=== PATIENT | male | born 1970 | race Hispanic/Latino ===

== ENCOUNTER 2017-07-13 10:33 | Inpatient (IN) | payer OTHER ==
[~2017-07-13] VITALS: Ht 162.6 cm; Wt 93.9 kg
[2017-07-13 12:11] VITALS: BP 140/83
[2017-07-13] MEDS ORDERED: BIVALIRUDIN 250 MG/VIAL IV ONE (12:18)
[2017-07-13] MEDS ORDERED: HEPARIN SODIUM 1000UNIT/ML 10ML VIAL ONE (12:18)
[2017-07-13] MEDS ORDERED: NITROGLYCERIN 5 MG/ML 10 ML VIAL IV ONE (12:18)
[2017-07-13] MEDS ORDERED: IOPAMIDOL-370 100 ML VIAL IV ONE (12:18)
[2017-07-13] MEDS ORDERED: LIDOCAINE HCL 2% 20ML ONE (12:18)
[2017-07-13] MEDS ORDERED: IOPAMIDOL-370 75 ML VIAL IV ONE (12:18)
[2017-07-13] MEDS ORDERED: MIDAZOLAM HCL 1 MG/ML 2ML VIAL ONE (13:12)
[2017-07-13] MEDS ORDERED: FENTANYL CITRATE PF 50 MCG/1 ML 2ML VIAL ONE (13:12)
[2017-07-13] MEDS ORDERED: SODIUM CHLORIDE 0.9% 1000ML 1,000 ML IV SCH (13:50)
[2017-07-13] MEDS ORDERED: NITROGLYCERIN 0.4 MG SL TAB SL PRN (14:00)
[2017-07-13] MEDS ORDERED: DEXTROSE 50%-WATER 50 ML DISP.SYRIN IV PRN (14:00)
[2017-07-13] MEDS ORDERED: GLUCAGON 1MG KIT 1 MG ML IM PRN (14:00)
[2017-07-13] MEDS ORDERED: CEFUROXIME 1.5GM+NS 100ML 100 ML IV SCH (14:45)
[2017-07-13] MEDS: NITROGLYCERIN 1GM/1 INCH PACKET TD SCH ×2 (14:49→20:26)
[2017-07-13 15:11] LABS: HEMOGLOBIN A1C 5.8 % (4.0-6.0)
[2017-07-13] MEDS ORDERED: WATER FOR INJECTION,STERILE 20 ML VIAL IJ SCH (15:30)
[2017-07-13 15:50] VITALS: BP 142/78
[2017-07-13 16:05] VITALS: BP 152/78
[2017-07-13 16:20] VITALS: BP 157/85
[2017-07-13] MEDS ORDERED: ISOSORBIDE MONO 30MG TAB SR PO SCH (19:15)
[2017-07-13 19:21] VITALS: BP 153/82
[2017-07-13] MEDS: METOPROLOL TARTRATE 25 MG TAB PO SCH (20:26)
[2017-07-13 23:07] VITALS: BP 138/61
[2017-07-14] VITALS (16 sets, daily range): BP systolic 107–157; BP diastolic 65–86
[2017-07-14] MEDS: NITROGLYCERIN 1GM/1 INCH PACKET TD SCH ×2 (01:41→11:03)
[2017-07-14 04:26] LABS: BASOPHILS % (AUTO) 0.3 % (0.0-5.0); EOSINOPHILS % (AUTO) 0.5 % (0.0-8.0); HEMATOCRIT 38.8 % (42-54); LYMPHOCYTES % (AUTO) 24.3 % (21.0-51.0); MEAN CORPUSCULAR HEMOGLOBIN 29.2 pg (27.0-33.0); MEAN CORPUSCULAR HGB CONC 34.2 g/dL (32.0-36.0); MEAN CORPUSCULAR VOLUME 85.4 fL (79-99); MONOCYTES % (AUTO) 9.1 % (3.0-13.0); NEUTROPHILS % (AUTO) 65.8 % (40.0-77.0); NUCLEATED RED BLOOD CELLS 0.1 % (0.0-0.19); PLATELET COUNT (AUTO) 276 K/uL (130-400); RED BLOOD CELL COUNT(AUTO) 4.54 MIL/uL (4.50-6.20); RED CELL DISTRIBUTION WIDTH 13.1 % (11.0-15.5); WHITE BLOOD COUNT (AUTO) 8.9 K/uL (4.8-10.8)
[2017-07-14 04:34] LABS: INR 0.96 (0.85-1.15); PARTIAL THROMBOPLASTIN TIME 29.4 SEC (26.3-35.5); PROTHROMBIN TIME 10.1 SEC (9.6-11.6)
[2017-07-14] MEDS ORDERED: ONDANSETRON HCL 4 MG/2 ML VIAL ONE (04:44)
[2017-07-14] MEDS ORDERED: ONDANSETRON HCL 4 MG/2 ML VIAL IVP PRN (04:45)
[2017-07-14] MEDS ORDERED: MORPHINE SULFATE 4 MG/1ML SYG IV PRN (04:45)
[2017-07-14 04:47] LABS: CREATININE 0.8 mg/dL (0.5-1.5); POTASSIUM 3.7 mmol/L (3.5-5.1)
[2017-07-14] MEDS: ASPIRIN 81MG TAB.CHEW PO SCH (09:00)
[2017-07-14] MEDS: METOPROLOL TARTRATE 25 MG TAB PO SCH (09:23)
[2017-07-14] MEDS: CEFUROXIME SODIUM 1.5 GM VIAL IVP SCH ×2 (10:00→11:30)
[2017-07-14] MEDS ORDERED: SODIUM CHLORIDE 0.9% 1000ML 1,000 ML IV ONE (10:16)
[2017-07-14] MEDS ORDERED: PROPOFOL 10 MG/ML 20ML VIAL IV ONE (10:40)
[2017-07-14] MEDS ORDERED: PROTAMINE SULFATE 10 MG/ML 25ML VIAL IV ONE (10:40)
[2017-07-14] MEDS ORDERED: LIDOCAINE PF 2% 5ML ABBOJECT ONE (10:40)
[2017-07-14] MEDS ORDERED: ROCURONIUM BROMIDE 10MG/1ML 5ML VL ONE (10:40)
[2017-07-14] MEDS ORDERED: GLYCOPYRROLATE 0.2 MG/ML 5 ML VIAL ONE (10:40)
[2017-07-14] MEDS ORDERED: NEOSTIGMINE METHYLSULFATE 1MG/ML IV ONE (10:40)
[2017-07-14] MEDS ORDERED: AMINOCAPROIC ACID 250 MG/ML 20 ML VIAL IV ONE (10:40)
[2017-07-14] MEDS ORDERED: EPINEPHRINE 1 MG/ML AMPULE ONE (10:40)
[2017-07-14] MEDS ORDERED: NOREPINEPHRINE BITARTRATE 1 MG/1 ML ML IV ONE (10:40)
[2017-07-14] MEDS ORDERED: HEPARIN SODIUM 1000UNIT/ML 10ML VIAL ONE ×3 (10:40→12:41)
[2017-07-14] MEDS ORDERED: MILRINONE-D5W 20 MG/100 ML 100 ML IV ONE (10:40)
[2017-07-14] MEDS ORDERED: AMIODARONE HCL 900MG/18ML IV ONE (10:40)
[2017-07-14] MEDS ORDERED: ESMOLOL HCL 10 MG/ML 10 ML VIAL ONE (10:40)
[2017-07-14] MEDS ORDERED: FENTANYL CITRATE PF 50 MCG/1 ML 20ML VIAL IJ ONE (10:41)
[2017-07-14] MEDS ORDERED: MIDAZOLAM HCL 1 MG/ML 5ML VIAL ONE (10:41)
[2017-07-14] MEDS ORDERED: NITROGLYCERIN 50 MG/D5% WATER 1 BOT ONE (11:07)
[2017-07-14] MEDS ORDERED: PAPAVERINE HCL 30 MG/ML 2ML VIAL ONE (11:50)
[2017-07-14] MEDS ORDERED: BACITRACIN 50,000 UNIT VIAL ONE (11:50)
[2017-07-14] MEDS ORDERED: OCTYL 2-CYANOACRYLATE 1 EACH TP ONE ×2 (11:50→16:18)
[2017-07-14 12:23] LABS: ABG HCO3 24.5 mmol/L (21.0-28.0); ABG OXYGEN SATURATION 99.1 % (95.0-99.0); ABG PCO2 44 mmHg (35-48)
[2017-07-14] MEDS ORDERED: THROMBIN-JMI 5000 UNIT/VIAL TP ONE (12:41)
[2017-07-14] MEDS ORDERED: SODIUM BICARB 8.4% 50ML SYRINGE ONE ×3 (13:08→16:26)
[2017-07-14] MEDS ORDERED: CALCIUM CHLORIDE 100 MG/ML 10 ML SYG IVP ONE (13:08)
[2017-07-14 14:06] LABS: ABG BASE EXCESS -9.6 mmol/L (-2.0-3.0); ABG HCO3 15.7 mmol/L (21.0-28.0); ABG OXYGEN SATURATION 99.1 % (95.0-99.0); ABG PCO2 33 mmHg (35-48)
[2017-07-14] MEDS ORDERED: FENTANYL CITRATE PF 50 MCG/1 ML 5ML AMP IV ONE (14:18)
[2017-07-14] MEDS ORDERED: CEFUROXIME SODIUM 1.5 GM VIAL ONE (14:33)
[2017-07-14 16:15] LABS: ABG BASE EXCESS -1.6 mmol/L (-2.0-3.0); ABG HCO3 21.8 mmol/L (21.0-28.0); ABG OXYGEN SATURATION 98.5 % (95.0-99.0); ABG PCO2 33 mmHg (35-48)
[2017-07-14] MEDS ORDERED: METOPROLOL TARTRATE 1 MG/ML 5ML VIAL IV ONE ×2 (16:15→16:26)
[2017-07-14] MEDS ORDERED: SODIUM CHLORIDE 0.9% 500ML 500 ML IV SCH (17:17)
[2017-07-14] MEDS ORDERED: GLUCAGON 1MG KIT 1 MG ML IM PRN (17:30)
[2017-07-14] MEDS ORDERED: CALCIUM GLUCONATE 1 GM in SODIUM CHLORIDE 0.9% 50 ML IV PRN (17:30)
[2017-07-14] MEDS ORDERED: PROPOFOL 1000 MG/100 ML 100 ML IV PRN (17:30)
[2017-07-14] MEDS ORDERED: SODIUM CHLORIDE 0.9% 250 ML IV PRN (17:30)
[2017-07-14] MEDS ORDERED: POTASSIUM PHOS 15 mMOL+NS250ML 250 ML IV PRN (17:30)
[2017-07-14] MEDS ORDERED: SODIUM CHLORIDE 0.9% 1000ML 1,000 ML IV SCH (17:30)
[2017-07-14] MEDS ORDERED: DEXTROSE 50%-WATER 50 ML DISP.SYRIN IV PRN (17:30)
[2017-07-14] MEDS ORDERED: HYDROCODONE/ACETAMINOPHEN 5/325 MG TAB PO PRN (17:30)
[2017-07-14] MEDS ORDERED: ONDANSETRON HCL 4 MG/2 ML VIAL IV PRN (17:30)
[2017-07-14] MEDS ORDERED: MORPHINE SULFATE 2 MG/ML 1ML SYG IV PRN (17:30)
[2017-07-14] MEDS ORDERED: INSULIN REGULAR, HUMAN 3ML 100 UNIT in SODIUM CHLORIDE 0.9% 99 ML IV SCH ×2 (17:30)
[2017-07-14] MEDS ORDERED: SODIUM BICARB 8.4% 50ML SYRINGE IV PRN (17:30)
[2017-07-14] MEDS ORDERED: EPINEPHRINE 2 MG in SODIUM CHLORIDE 0.9% 250 ML IV PRN (17:30)
[2017-07-14] MEDS ORDERED: NOREPINEPHRINE 4MG/NS 250ML 250 ML IV PRN (17:30)
[2017-07-14] MEDS ORDERED: ALBUMIN (HUMAN) 5% 250 ML IV PRN (17:30)
[2017-07-14] MEDS ORDERED: SODIUM CHLORIDE 0.9% 10 ML VIAL IVP PRN (17:30)
[2017-07-14] MEDS ORDERED: ACETAMINOPHEN 650 MG SUPPOSITORY RC PRN (17:30)
[2017-07-14] MEDS ORDERED: NITROGLYCERIN 50 MG/D5% WATER 250 BOT IV SCH (17:30)
[2017-07-14 17:38] LABS: HEMATOCRIT 33.8 % (42-54); MEAN CORPUSCULAR HEMOGLOBIN 30.1 pg (27.0-33.0); MEAN CORPUSCULAR HGB CONC 35.3 g/dL (32.0-36.0); MEAN CORPUSCULAR VOLUME 85.1 fL (79-99); PLATELET COUNT (AUTO) 280 K/uL (130-400); RED BLOOD CELL COUNT(AUTO) 3.97 MIL/uL (4.50-6.20); RED CELL DISTRIBUTION WIDTH 12.9 % (11.0-15.5); WHITE BLOOD COUNT (AUTO) 24.6 K/uL (4.8-10.8)
[2017-07-14] MEDS: MORPHINE SULFATE 4 MG/1ML SYG IV PRN ×2 (17:39→19:32)
[2017-07-14 17:46] LABS: ABG BASE EXCESS -1.7 mmol/L (-2.0-3.0); ABG HCO3 23.2 mmol/L (21.0-28.0); ABG PCO2 40 mmHg (35-48)
[2017-07-14 17:49] LABS: CREATININE 1.1 mg/dL (0.5-1.5); MAGNESIUM 1.4 mg/dL (1.80-2.40); PHOSPHORUS 4.6 mg/dL (2.5-4.9); POTASSIUM 4.2 mmol/L (3.5-5.1)
[2017-07-14] MEDS: MAGNESIUM 2GM PREMIX 50ML 50 ML IV PRN (18:35)
[2017-07-14] MEDS ORDERED: SODIUM BICARB 50MEQ 50ML VIAL ONE (19:46)
[2017-07-14 21:29] LABS: MAGNESIUM 2.2 mg/dL (1.80-2.40); POTASSIUM 4.1 mmol/L (3.5-5.1)
[2017-07-14] MEDS: POTASSIUM CHLORIDE 20MEQ/100ML 100 ML IV PRN (22:36)
[2017-07-14 23:05] LABS: ABG BASE EXCESS -1.6 mmol/L (-2.0-3.0); ABG HCO3 23.2 mmol/L (21.0-28.0); ABG OXYGEN SATURATION 97.9 % (95.0-99.0); ABG PCO2 40 mmHg (35-48)
[2017-07-15] VITALS (25 sets, daily range): BP systolic 104–158; BP diastolic 56–96
[2017-07-15 00:47] LABS: ABG BASE EXCESS 1.5 mmol/L (-2.0-3.0); ABG HCO3 26.9 mmol/L (21.0-28.0); ABG OXYGEN SATURATION 97.7 % (95.0-99.0); ABG PCO2 46 mmHg (35-48)
[2017-07-15] MEDS: HYDROCODONE/ACETAMINOPHEN 5/325 MG TAB PO PRN ×4 (01:00→13:14)
[2017-07-15] MEDS: CEFUROXIME SODIUM 1.5 GM VIAL IVP SCH ×2 (01:01→13:04)
[2017-07-15] MEDS: WATER FOR INJECTION,STERILE 20 ML VIAL IJ SCH ×2 (01:01→13:04)
[2017-07-15] MEDS: POTASSIUM CHLORIDE 20MEQ/100ML 100 ML IV PRN (01:01)
[2017-07-15] MEDS ORDERED: CEFUROXIME 1.5GM+NS 100ML 100 ML IV SCH (01:30)
[2017-07-15 04:19] LABS: BASOPHILS % (AUTO) 0.1 % (0.0-5.0); HEMATOCRIT 33.9 % (42-54); MEAN CORPUSCULAR HEMOGLOBIN 29.6 pg (27.0-33.0); MEAN CORPUSCULAR HGB CONC 34.7 g/dL (32.0-36.0); MEAN CORPUSCULAR VOLUME 85.4 fL (79-99); MONOCYTES % (AUTO) 9.5 % (3.0-13.0); NEUTROPHILS % (AUTO) 85.4 % (40.0-77.0); PLATELET COUNT (AUTO) 254 K/uL (130-400); RED BLOOD CELL COUNT(AUTO) 3.98 MIL/uL (4.50-6.20); RED CELL DISTRIBUTION WIDTH 13.1 % (11.0-15.5); WHITE BLOOD COUNT (AUTO) 16.7 K/uL (4.8-10.8)
[2017-07-15 04:37] LABS: CREATININE 0.9 mg/dL (0.5-1.5); PHOSPHORUS 4.2 mg/dL (2.5-4.9); POTASSIUM 4.2 mmol/L (3.5-5.1)
[2017-07-15] MEDS: ASPIRIN 81MG TAB.CHEW PO SCH (09:13)
[2017-07-15] MEDS: PANTOPRAZOLE SODIUM 40 MG TABLET.DR PO SCH (09:13)
[2017-07-15] MEDS ORDERED: METOPROLOL TARTRATE 25 MG TAB PO SCH ×2 (14:30→15:45)
[2017-07-15] MEDS: POTASSIUM CHLORIDE 20 MEQ ERTAB PO SCH (16:17)
[2017-07-15] MEDS: FUROSEMIDE 20 MG TABLET PO SCH (16:18)
[2017-07-15] MEDS: METOPROLOL TARTRATE 50 MG TAB PO SCH (20:47)
[2017-07-15] MEDS: ATORVASTATIN CALCIUM 20 MG TABLET PO SCH (20:47)
[2017-07-15] MEDS ORDERED: CETIRIZINE HCL 5 MG TABLET PO ONE (20:55)
[2017-07-15] MEDS ORDERED: CETIRIZINE HCL 5 MG TABLET PO SCH (21:00)
[2017-07-15] MEDS: GUAIFENESIN 600 MG TABLET.ER PO SCH (22:45)
[2017-07-16] VITALS (10 sets, daily range): BP systolic 115–138; BP diastolic 57–84
[2017-07-16] MEDS: CEFUROXIME SODIUM 1.5 GM VIAL IVP SCH (01:21)
[2017-07-16] MEDS: WATER FOR INJECTION,STERILE 20 ML VIAL IJ SCH (01:21)
[2017-07-16] MEDS: TRAMADOL HCL 50 MG TABLET PO PRN ×5 (01:21→23:52)
[2017-07-16 03:28] LABS: BASOPHILS % (AUTO) 0.2 % (0.0-5.0); HEMATOCRIT 30.9 % (42-54); LYMPHOCYTES % (AUTO) 9.4 % (21.0-51.0); MEAN CORPUSCULAR HEMOGLOBIN 29.1 pg (27.0-33.0); MEAN CORPUSCULAR HGB CONC 33.6 g/dL (32.0-36.0); MEAN CORPUSCULAR VOLUME 86.6 fL (79-99); MONOCYTES % (AUTO) 8.7 % (3.0-13.0); NEUTROPHILS % (AUTO) 81.7 % (40.0-77.0); PLATELET COUNT (AUTO) 226 K/uL (130-400); RED BLOOD CELL COUNT(AUTO) 3.57 MIL/uL (4.50-6.20); RED CELL DISTRIBUTION WIDTH 13.4 % (11.0-15.5); WHITE BLOOD COUNT (AUTO) 14.9 K/uL (4.8-10.8)
[2017-07-16 03:43] LABS: CREATININE 0.8 mg/dL (0.5-1.5); MAGNESIUM 1.8 mg/dL (1.80-2.40); POTASSIUM 3.6 mmol/L (3.5-5.1)
[2017-07-16] MEDS: MAGNESIUM 2GM PREMIX 50ML 50 ML IV PRN (05:14)
[2017-07-16] MEDS: POTASSIUM CHLORIDE 20MEQ/100ML 100 ML IV PRN (05:15)
[2017-07-16] MEDS: METOPROLOL TARTRATE 50 MG TAB PO SCH ×2 (08:27→19:52)
[2017-07-16] MEDS: GUAIFENESIN 600 MG TABLET.ER PO SCH ×3 (08:27→19:52)
[2017-07-16] MEDS: CETIRIZINE HCL 5 MG TABLET PO SCH (08:27)
[2017-07-16] MEDS: PANTOPRAZOLE SODIUM 40 MG TABLET.DR PO SCH (08:27)
[2017-07-16] MEDS: FUROSEMIDE 20 MG TABLET PO SCH ×2 (08:28→15:58)
[2017-07-16] MEDS: POTASSIUM CHLORIDE 20 MEQ ERTAB PO SCH ×2 (08:28→16:00)
[2017-07-16] MEDS: ASPIRIN 81MG TAB.CHEW PO SCH (08:28)
[2017-07-16] MEDS: ACETAMINOPHEN 325 MG TAB PO PRN (16:23)
[2017-07-16] MEDS: ATORVASTATIN CALCIUM 20 MG TABLET PO SCH (19:52)
[2017-07-16] MEDS ORDERED: POTASSIUM CHLORIDE 20 MEQ ERTAB PO SCH (21:00)
[2017-07-17] VITALS (7 sets, daily range): BP systolic 116–135; BP diastolic 58–93
[2017-07-17] MEDS: TRAMADOL HCL 50 MG TABLET PO PRN ×2 (03:59→08:40)
[2017-07-17 04:28] LABS: HEMATOCRIT 27.2 % (42-54); MEAN CORPUSCULAR HEMOGLOBIN 28.7 pg (27.0-33.0); MEAN CORPUSCULAR HGB CONC 33.8 g/dL (32.0-36.0); MEAN CORPUSCULAR VOLUME 84.7 fL (79-99); PLATELET COUNT (AUTO) 248 K/uL (130-400); RED BLOOD CELL COUNT(AUTO) 3.21 MIL/uL (4.50-6.20); RED CELL DISTRIBUTION WIDTH 13.4 % (11.0-15.5); WHITE BLOOD COUNT (AUTO) 13.2 K/uL (4.8-10.8)
[2017-07-17 04:39] LABS: CREATININE 0.8 mg/dL (0.5-1.5); POTASSIUM 4.6 mmol/L (3.5-5.1)
[2017-07-17] MEDS: FUROSEMIDE 20 MG TABLET PO SCH ×2 (08:39→16:17)
[2017-07-17] MEDS: METOPROLOL TARTRATE 50 MG TAB PO SCH ×2 (08:39→20:03)
[2017-07-17] MEDS: ASPIRIN 81MG TAB.CHEW PO SCH (08:39)
[2017-07-17] MEDS: GUAIFENESIN 600 MG TABLET.ER PO SCH ×2 (08:39→20:03)
[2017-07-17] MEDS: ENOXAPARIN SODIUM 40 MG/0.4 ML SYRINGE SQ SCH (08:40)
[2017-07-17] MEDS: CETIRIZINE HCL 5 MG TABLET PO SCH (08:40)
[2017-07-17] MEDS: PANTOPRAZOLE SODIUM 40 MG TABLET.DR PO SCH (08:40)
[2017-07-17] MEDS: POTASSIUM CHLORIDE 20 MEQ ERTAB PO SCH ×2 (08:41→16:18)
[2017-07-17] MEDS ORDERED: POLYETHYLENE GLYCOL 3350 17 GM POWD.PACK PO PRN (09:30)
[2017-07-17] MEDS ORDERED: FURO20TA6 PO (12:01)
[2017-07-17] MEDS ORDERED: METO50 PO (12:01)
[2017-07-17] MEDS ORDERED: MIRAUD PO (12:01)
[2017-07-17] MEDS ORDERED: ATOR20TA65 PO (12:01)
[2017-07-17] MEDS ORDERED: FUROSEMIDE 20 MG TABLET PO SCH (12:15)
[2017-07-17] MEDS: CALCIUM GLUCONATE 1 GM in SODIUM CHLORIDE 0.9% 50 ML IV SCH (12:43)
[2017-07-17] MEDS: ACETAMINOPHEN 325 MG TAB PO PRN ×2 (16:38→22:23)
[2017-07-17] MEDS: ATORVASTATIN CALCIUM 20 MG TABLET PO SCH (20:02)
[2017-07-18 03:58] VITALS: BP 130/74
[2017-07-18 07:00] VITALS: BP 119/84
[2017-07-18] MEDS: CALCIUM GLUCONATE 1 GM in SODIUM CHLORIDE 0.9% 50 ML IV SCH (07:29)
[2017-07-18] MEDS: METOPROLOL TARTRATE 50 MG TAB PO SCH (07:38)
[2017-07-18] MEDS: CETIRIZINE HCL 5 MG TABLET PO SCH (07:38)
[2017-07-18] MEDS: GUAIFENESIN 600 MG TABLET.ER PO SCH (07:38)
[2017-07-18] MEDS: FUROSEMIDE 20 MG TABLET PO SCH (07:38)
[2017-07-18] MEDS: PANTOPRAZOLE SODIUM 40 MG TABLET.DR PO SCH (07:39)
[2017-07-18] MEDS: ASPIRIN 81MG TAB.CHEW PO SCH (07:39)
[2017-07-18] MEDS: ENOXAPARIN SODIUM 40 MG/0.4 ML SYRINGE SQ SCH (07:40)
[2017-07-18] MEDS: POTASSIUM CHLORIDE 20 MEQ ERTAB PO SCH (07:40)
[2017-07-18 11:40] VITALS: BP 120/72
== END 2017-07-18 13:00 | disposition home or self-care (01) | DRG 234 ==
LOC: 2DH 12:01 → 2CV 07-14 13:04 → 2CH 07-15 19:35 → 2DH 07-16 17:18
PROVIDERS: ADMIT Family Medicine; ATTEND Family Medicine
PROC: 4A023N7 Measurement of Cardiac Sampling and Pressure, Left Heart, Percutaneous Approach (ICD-10-PCS; principal; 2017-07-13)
PROC: B2111ZZ Fluoroscopy of Multiple Coronary Arteries using Low Osmolar Contrast (ICD-10-PCS; 2017-07-13)
PROC: B2151ZZ Fluoroscopy of Left Heart using Low Osmolar Contrast (ICD-10-PCS; 2017-07-13)
PROC: 021009W Bypass Coronary Artery, One Artery from Aorta with Autologous Venous Tissue, Open Approach (ICD-10-PCS; 2017-07-14)
PROC: 02100Z9 Bypass Coronary Artery, One Artery from Left Internal Mammary, Open Approach (ICD-10-PCS; 2017-07-14)
PROC: 02100Z8 Bypass Coronary Artery, One Artery from Right Internal Mammary, Open Approach (ICD-10-PCS; 2017-07-14)
PROC: 06BQ4ZZ Excision of Left Saphenous Vein, Percutaneous Endoscopic Approach (ICD-10-PCS; 2017-07-14 11:25)
DX: I25.110 Atherosclerotic heart disease of native coronary artery with unstable angina pectoris (principal); E11.65 Type 2 diabetes mellitus with hyperglycemia; I24.9 Acute ischemic heart disease, unspecified; E78.5 Hyperlipidemia, unspecified; I10 Essential (primary) hypertension; F12.90 Cannabis use, unspecified, uncomplicated; I16.0 Hypertensive urgency; D64.9 Anemia, unspecified; Z28.21 Immunization not carried out because of patient refusal
CPT/HCPCS: 36415; 36600; 71010; 71045; 80048; 80061; 82330; 82435; 82803; 82947; 82948; 83036; 83605; 83735; 84100; 84132; 84295; 85018; 85025; 85027; 85347; 85610; 85730; 86850; 86900; 86901; 86922; 93458; 93880; 94002; 94010; 94150; 97039; A7048; C1760; C1894; J0171; J0282; J0583; J0610; J0697; J1644; J1650; J1815; J2001; J2250; J2260; J2270; J2405; J2440; J2704; J2710; J2720; J3010; J3475; J3480; J3490; J7030; J7040; Q9967

== ENCOUNTER 2018-06-22 07:50 | Day surgery (SDC) | payer OTHER ==
[2018-06-14 14:24] LABS: BASOPHILS % (AUTO) 0.4 % (0.0-5.0); EOSINOPHILS % (AUTO) 0.9 % (0.0-8.0); HEMATOCRIT 41.3 % (42-54); LYMPHOCYTES % (AUTO) 21.9 % (21.0-51.0); MEAN CORPUSCULAR HEMOGLOBIN 29.2 pg (27.0-33.0); MEAN CORPUSCULAR HGB CONC 33.9 g/dL (32.0-36.0); NEUTROPHILS % (AUTO) 68.8 % (40.0-77.0); PLATELET COUNT (AUTO) 290 K/uL (130-400); RED CELL DISTRIBUTION WIDTH 13.6 % (11.0-15.5); WHITE BLOOD COUNT (AUTO) 7.5 K/uL (4.8-10.8)
[2018-06-14 14:42] LABS: CREATININE 1.1 mg/dL (0.5-1.5); POTASSIUM 3.9 mmol/L (3.5-5.1)
[2018-06-19 15:13] VITALS: BP 162/78
[2018-06-22] VITALS (13 sets, daily range): BP systolic 124–156; BP diastolic 65–93
[~2018-06-22] VITALS: Ht 165.1 cm; Wt 86.4 kg
[~2018-06-22 07:50] MED LIST: ASPI-555 PO; ATOR20TA65 PO; CEFAZOLIN SODIUM 1 GM VIAL IVP SCH; METO-408 PO
[2018-06-22] MEDS ORDERED: LACTATED RINGERS 1000ML 1,000 ML IV ONE (08:23)
[2018-06-22] MEDS ORDERED: PHARMACY COMMUNICATION MISC SCH (09:00)
[2018-06-22] MEDS ORDERED: METOPROLOL TARTRATE 25 MG TAB PO SCH (09:15)
[2018-06-22] MEDS ORDERED: ONDANSETRON HCL 4 MG/2 ML VIAL ONE (10:16)
[2018-06-22] MEDS ORDERED: MIDAZOLAM HCL 1 MG/ML 2ML VIAL ONE (10:16)
[2018-06-22] MEDS ORDERED: LIDOCAINE PF 2% 5ML ABBOJECT ONE (10:16)
[2018-06-22] MEDS ORDERED: FENTANYL CITRATE PF 50 MCG/1 ML 2ML VIAL ONE ×2 (10:16→10:53)
[2018-06-22] MEDS ORDERED: PROPOFOL 10 MG/ML 20ML VIAL IV ONE (10:16)
[2018-06-22] MEDS ORDERED: DEXAMETHASONE SOD PHOSPHATE 10MG/ML 1ML VIAL ONE (10:16)
[2018-06-22] MEDS ORDERED: BUPIVACAINE/PF 0.25% 30ML VIAL IJ ONE (10:30)
[2018-06-22] MEDS ORDERED: BACITRACIN 28.4 GM OINT TP ONE (10:30)
[2018-06-22] MEDS ORDERED: MORPHINE SULFATE 4 MG/1ML SYG ONE (11:35)
== END 2018-06-22 13:05 | disposition home or self-care (01) ==
LOC: DAH 07:50
PROVIDERS: ATTEND Urology
DX: N47.1 Phimosis (principal); L91.8 Other hypertrophic disorders of the skin; I10 Essential (primary) hypertension; E78.5 Hyperlipidemia, unspecified; I25.10 Atherosclerotic heart disease of native coronary artery without angina pectoris; Z95.1 Presence of aortocoronary bypass graft; Z79.899 Other long term (current) drug therapy
CPT/HCPCS: 11200; 36415; 54161; 80048; 85025; 88304; 93005; A4606; J0690; J1100; J2001; J2250; J2270; J2405; J2704; J3010 ×2; J3490; J7120

== ENCOUNTER → 2020-10-13 | Outpatient (CLI) | payer OTHER ==
[~2020-10-13] MED LIST changes: -ASPI-555 PO; +ASPI-556 PO; -CEFAZOLIN SODIUM 1 GM VIAL IVP SCH
[2020-10-13 11:01] LABS: ALBUMIN 3.7 g/dL (3.5-5.0); BILIRUBIN,DIRECT 0.1 mg/dL (0.0-0.3); BILIRUBIN,TOTAL 0.5 mg/dL (0.2-1.0); THYROID STIMULATING HORMONE 1.7 uIU/mL (0.36-3.74); TOTAL PROTEIN, SERUM 7.6 g/dL (6.0-8.3)
== END | disposition home or self-care (01) ==
LOC: LAB 10:06
PROVIDERS: ATTEND Internal Medicine Cardiovascular Disease
DX: I25.10 Atherosclerotic heart disease of native coronary artery without angina pectoris (principal); I10 Essential (primary) hypertension; E78.2 Mixed hyperlipidemia
CPT/HCPCS: 36415; 80061; 80076; 84443